=== PATIENT | male | born 1995 | race Asian ===

== ENCOUNTER 2019-06-05 01:36 | Emergency (ER) | payer OTHER ==
[2019-06-05 05:02] LABS: ABS Lymphocytes 0.8 10^3/ul (1.0-4.8); ABS Monocytes 1.2 10^3/ul (0-0.8); ABS Neutrophils 6.5 10^3/ul (1.5-7.7); Hematocrit 45 % (42-52); Hemoglobin 15.7 g/dL (14.0-18.0); Lymphocyte % 9.7 %; Mean Corpuscular HGB Conc 35 g/dL (31-36); Mean Corpuscular Hemoglobin 30 pg (27-31); Mean Corpuscular Volume 86 fL (80-94); Mean Platelet Volume 7.6 fL (7.4-10.4); Nucleated Red Blood Cells % 0.1; Platelet Count 138 10^3/uL (150-450); Red Cell Distribution Width 13 % (10-15); White Blood Count 8.6 10^3/uL (3.5-10.8)
[2019-06-05 05:08] LABS: INR 1.18 (0.82-1.09)
--- NOTE | 2019-06-05 05:16 | ED ---
HPI Febrile Illness - HPI Summary HPI Summary: 23 year old male presents to the ED with a chief complaint of fever starting yesterday. Patient reports dizziness, sore throat, myalgia, and vomiting. Patient denies cough, abdominal pain, and diarrhea. No PMHx. - History of Current Complaint Chief Complaint: EDFever Time Seen by Provider: 06/05/19 04:08 Hx Obtained From: Patient Onset/Duration: Started Days Ago, Still Present Timing: Constant Initial Severity: Mild Current Severity: Mild Pain Intensity: 3 Pain Scale Used: 0-10 Numeric Aggravating Factors: Unknown Associated Signs and Symptoms: Dizziness, Sore Throat, Vomiting - Allergy/Home Medications Allergies/Adverse Reactions: Allergies Allergy/AdvReac Type Severity Reaction Status Date / Time No Known Allergies Allergy Verified 06/05/19 01:50 PMH/Surg Hx/FS Hx/Imm Hx Previously Healthy: Yes Sensory History: Denies: Hx Legally Blind, Hx Deafness EENT History: Denies: Hx Deafness Infectious Disease History: No Infectious Disease History: Denies: Traveled Outside the [place] in Last 30 Days - Family History Known Family History: Positive: Non-Contributory - Social History Alcohol Use: None Substance Use Type: Reports: None Smoking Status (MU): Never Smoked Tobacco Review of Systems - ROS Summary Review of Systems Summary: No home medications. Positive: Fever, Chills Positive: Sore Throat Negative: Cough Positive: Vomiting. Negative: Abdominal Pain Positive: Myalgia Neurological: Other - dizziness All Other Systems Reviewed And Are Negative: Yes Physical Exam Vital Signs On Initial Exam: Initial Vitals Temp Pulse Resp BP Pulse Ox 98.7 F 108 16 140/91 96 06/05/19 01:40 06/05/19 01:40 06/05/19 01:40 06/05/19 01:40 06/05/19 01:40 Procedures - Sedation Patient Received Moderate/Deep Sedation with Procedure: No Diagnostics - Vital Signs Vital Signs Temp Pulse Resp BP Pulse Ox 06/05/19 04:19 99.1 F 06/05/19 04:12 98 100 06/05/19 04:11 97 138/91 99 06/05/19 01:40 98.7 F 108 16 140/91 96 - Laboratory Lab Results: Lab Results 06/05/19 06/05/19 Range/Units 04:55 04:55 WBC 8.6 (3.5-10.8) 10^3/uL RBC 5.20 (4.18-5.48) 10^6 /uL Hgb 15.7 (14.0-18.0) g/dL Hct 45 (42-52) % MCV 86 (80-94) fL MCH 30 (27-31) pg MCHC 35 (31-36) g/dL RDW 13 (10-15) % Plt Count 138 L (150-450) 10^3/uL MPV 7.6 (7.4-10.4) fL Neut % (Auto) 75.6 % Lymph % (Auto) 9.7 % Jones % (Auto) 14.4 % Eos % (Auto) 0.0 % Baso % (Auto) 0.3 % Absolute Neuts (auto) 6.5 (1.5-7.7) 10^3/ul Absolute Lymphs (auto) 0.8 L (1.0-4.8) 10^3/ul Absolute Monos (auto) 1.2 H (0-0.8) 10^3/ul Absolute Eos (auto) 0.0 (0-0.6) 10^3/ul Absolute Basos (auto) 0.0 (0-0.2) 10^3/ul Absolute Nucleated RBC 0.0 10^3/ul Nucleated RBC % 0.1 INR (Anticoag Therapy) 1.18 H (0.82-1.09) Result Diagrams: 06/05/19 04:55 06/05/19 04:55 Lab Statement: Any lab studies that have been ordered have been reviewed, and results considered in the medical decision making process. Course/Dx - Course Course Of Treatment: 23-year-old male presents with multiple symptoms. Afebrile upon presentation but temperature started increasing while he was here. Given ibuprofen. Strongly advised increased fluids. Flu negative. Strep negative. Patient discharged home. Advised plenty of fluids and rest. Ibuprofen or Tylenol as needed. Follow-up with PCP. Follow-up sooner for any worsening symptoms. - Diagnoses Provider Diagnoses: Systemic viral illness Discharge ED - Sign-Out/Discharge Documenting (check all that apply): Patient Departure - Discharge Plan Condition: Stable Disposition: HOME Patient Education Materials: Viral Syndrome (ED) Referrals: [facility] [Outside] Additional Instructions: Follow up with [facility] in 2-3 days. Return to the ED if you experience new or worsening symptoms. - Billing Disposition and Condition Condition: STABLE Disposition: Home - Attestation Statements Document Initiated by Agustin: Yes Documenting Scribe: Jackson Monsalve Provider For Whom Agustin is Documenting (Include Credential): Belle Mcclure MD Scribe Attestation: Jackson Solis, scribed for Belle Mcclure MD on 06/05/19 at 1908. Scribe Documentation Reviewed: Yes Provider Attestation: The documentation as recorded by the loveibJackson snyder accurately reflects the service I personally performed and the decisions made by me, Belle Mcclure MD Status of Scribe Document: Viewed
[2019-06-05 05:23] LABS: Albumin 4.6 g/dL (3.2-5.2); Albumin/Globulin Ratio 1.5 (1-3); BUN/Creatinine Ratio 17.8 (8-20); C Reactive Protein 52.65 mg/L (<8.01); Calcium 9.3 mg/dL (8.6-10.3); EGFR African American 104.6 (>60); EGFR Non-African American 86.4 (>60); Globulin 3.1 g/dL (2-4); Total Bilirubin 1.2 mg/dL (0.2-1.0); Total Protein 7.7 g/dL (6.4-8.9)
[2019-06-05] MEDS ORDERED: Ibuprofen TAB* 400 MG PO ONE (05:48)
[2019-06-05 06:27] LABS: Urine Appearance Cloudy; Urine Bacteria Absent (Absent); Urine Bilirubin Negative (Negative); Urine Blood Negative (Negative); Urine Color Yellow; Urine Glucose Negative (Negative); Urine Ketones 2+ (Negative); Urine Nitrite Negative (Negative); Urine Protein 1+(30 mg/dL) (Negative); Urine Red Blood Cell Absent (Absent); Urine Specific Gravity 1.036 (1.010-1.030); Urine Urobilinogen Negative (Negative); Urine White Blood Cell Trace(0-5/hpf) (Absent)
[2019-06-05 06:29] LABS: Rapid Strep Molecular Negative (Negative)
[2019-06-05 06:36] LABS: Influenza A Molecular NEGATIVE (Negative); Influenza B Molecular NEGATIVE (Negative)
[2019-06-05 07:06] VITALS: BP 130/78
== END 2019-06-05 07:00 | disposition home or self-care (01) ==
LOC: ED 01:36
DX: B34.9 Viral infection, unspecified (principal)
CPT/HCPCS: 36415; 80053; 81003; 81015; 83605; 85025; 85610; 86140; 87086; 87651; 99282; A9270-GY